=== PATIENT | male | born 1955 | race Caucasian/White ===

== ENCOUNTER 2018-06-29 09:54 | Emergency (ER) | payer MEDICARE ==
[~2018-06-29] VITALS: Ht 193 cm; Wt 106.6 kg
--- NOTE | 2018-06-29 10:03 | NUR ---
KEVIN OQUENDO AT BEDSIDE FOR MSE.
[2018-06-29] MEDS ORDERED: ASCO500P18 PO (10:04)
[2018-06-29] MEDS ORDERED: ATOR20TA PO (10:04)
[2018-06-29] MEDS ORDERED: PHEN100C4 PO (10:04)
[2018-06-29] MEDS ORDERED: IRBE150T28 PO (10:04)
--- NOTE | 2018-06-29 10:50 | NUR ---
KEVIN OQUENDO AT BEDSIDE FOR PT UPDATE.
--- NOTE | 2018-06-29 10:58 | NUR ---
Patient discharged to home in stable conditon. Written and verbal after care instructions given. Patient verbalizes understanding of instructions. ALL BELONGINGS W/ PT. PT SELF-AMBULATED W/O DIFFICULTY.
[2018-06-29 11:00] VITALS: BP 113/80
== END 2018-06-29 11:01 | disposition home or self-care (01) ==
LOC: ER 09:54
DX: R50.9 Fever, unspecified (principal); J02.9 Acute pharyngitis, unspecified; Z79.899 Other long term (current) drug therapy
CPT/HCPCS: 36415; 86403; 87070; 87400; A4663

== ENCOUNTER 2018-07-01 11:12 | Emergency (ER) | payer MEDICARE ==
[~2018-07-01] VITALS: Ht 193 cm; Wt 106.6 kg
[~2018-07-01 11:12] MED LIST: ASCO500P18 PO; ATOR20TA PO; IRBE150T28 PO; PHEN100C4 PO
--- NOTE | 2018-07-01 11:38 | NUR ---
Received a 63 y/o male C/O headches and congestion , seen by MD, pt for discharge, prescription and Discharge instructions given. pt verbalized understanding and was discharged
== END 2018-07-01 11:47 | disposition home or self-care (01) ==
LOC: ER 11:12
DX: J32.9 Chronic sinusitis, unspecified (principal); Z79.899 Other long term (current) drug therapy
CPT/HCPCS: A4663